=== PATIENT | male | born 1960 | race Caucasian/White ===

== ENCOUNTER 2021-02-03 12:52 | Emergency (ER) | payer BC ==
[~2021-02-03] VITALS: Ht 182.9 cm; Wt 70.3 kg
[~2021-02-03 12:52] MED LIST: ALBU90OI INH; Advil200 M1; IBUP400 PO; MONDOXYNE NL100 MG PO; PRED20 PO; Pepto-Bism525 MG/15; Percocet 5-3251 EACH PO; SYMBICORT 160-4.6 GM; VITAMIN D35000 UNI1; ZINC10 MG
== END 2021-02-03 13:24 | disposition home or self-care (01) ==
LOC: ER 12:52
DX: J93.9 Pneumothorax, unspecified (principal); Z88.8 Allergy status to other drugs, medicaments and biological substances; Z79.899 Other long term (current) drug therapy; J44.9 Chronic obstructive pulmonary disease, unspecified; F17.200 Nicotine dependence, unspecified, uncomplicated
CPT/HCPCS: 71046; 99281-25

== ENCOUNTER 2021-02-04 11:39 | Emergency (ER) | payer BC ==
[~2021-02-04] VITALS: Ht 182.9 cm; Wt 70.3 kg
== END 2021-02-04 17:44 | disposition home or self-care (01) ==
LOC: ER 11:39
DX: J93.9 Pneumothorax, unspecified (principal); Z88.8 Allergy status to other drugs, medicaments and biological substances; Z79.899 Other long term (current) drug therapy; Z79.52 Long term (current) use of systemic steroids; J44.9 Chronic obstructive pulmonary disease, unspecified; Z87.891 Personal history of nicotine dependence
CPT/HCPCS: 71045; 71046; 99283-25

== ENCOUNTER 2021-02-06 09:04 | Observation (INO) | payer BC ==
[~2021-02-06] VITALS: Ht 182.9 cm; Wt 74.8 kg
[2021-02-06 11:18] LABS: BASOPHILS ABSOLUTE AUTO 0.02 K/mm3 (0.00-0.23); BASOPHILS PERCENT AUTO 0 % (0-2); EOSINOPHILS PERCENT AUTO 7 % (0-6); Hematocrit 45.3 % (37.0-53.0); Hemoglobin 15.6 g/dL (13.5-17.5); IMMATURE GRAN ABSOLUTE AUTO 0.01 K/mm3 (0.00-0.10); IMMATURE GRAN PERCENT AUTO 0 % (0-1); LYMPHOCYTES ABSOLUTE AUTO 0.92 K/mm3 (0.84-5.20); LYMPHOCYTES PERCENT AUTO 15 % (21-46); MONOCYTES ABSOLUTE AUTO 0.44 K/mm3 (0.16-1.47); MONOCYTES PERCENT AUTO 7 % (4-13); Mean Corpuscular HGB 30.9 pg (26.0-34.0); Mean Corpuscular HGB Conc 34.4 g/dL (31.5-36.5); Mean Corpuscular Volume 90 fL (80-100); NEUTROPHILS ABSOLUTE AUTO 4.34 K/mm3 (1.96-9.15); NEUTROPHILS PERCENT AUTO 71 % (41-73); Platelet Count 196 K/mm3 (150-400); RDW Coefficient Variation 12.6 % (11.7-14.2); RDW Standard Deviation 41.4 fL (35.1-46.3); Red Blood Cell Count 5.05 M/mm3 (4.30-5.90); White Blood Cell Count 6.13 K/mm3 (4.00-11.30)
[2021-02-06 11:38] LABS: Anion Gap 3 mmol/L (6-16); Blood Urea Nitrogen 8 mg/dL (8-24); Bun/Creatinine Ratio 12.4 (12.0-20.0); CO2, Blood 30 mmol/L (21-32); Calcium, Blood 8.7 mg/dL (8.5-10.1); Chloride, Blood 106 mmol/L (98-108); Creatinine, Blood 0.65 mg/dL (0.60-1.20); Glomerular Filtration Rate >60 (60-); Glucose, Blood 135 mg/dL (70-99); Potassium, Blood 3.4 mmol/L (3.5-5.5); Sodium, Blood 139 mmol/L (136-145)
--- NOTE | 2021-02-06 17:02 | NUR ---
1610 DR LEGER HERE TO SEE PATIENT. CHEST TUBE AND SUCTION CHECKED BY DR LEGER AND IS FUNCTIONING IT SHOULD
--- NOTE | 2021-02-06 18:06 | NUR ---
REMAINS WITH CHEST TUBE TO WALL SUCTION AND BUBBLING PRESENT IN CHAMBERS B/C. NO INCREASE IN AREA OF CREPITUS. PT DENIES SOB. PT DENIES NEED FOR PAIN MEDS
[2021-02-07 04:53] LABS: Hematocrit 42.5 % (37.0-53.0); Hemoglobin 14.4 g/dL (13.5-17.5); Mean Corpuscular HGB 30.3 pg (26.0-34.0); Mean Corpuscular HGB Conc 33.9 g/dL (31.5-36.5); Mean Corpuscular Volume 89 fL (80-100); Mean Platelet Volume 9.7 fL (9.1-12.4); Platelet Count 176 K/mm3 (150-400); RDW Coefficient Variation 12.4 % (11.7-14.2); RDW Standard Deviation 41.1 fL (35.1-46.3); Red Blood Cell Count 4.76 M/mm3 (4.30-5.90); White Blood Cell Count 5.93 K/mm3 (4.00-11.30)
[2021-02-07 05:45] LABS: Anion Gap 6 mmol/L (6-16); Blood Urea Nitrogen 9 mg/dL (8-24); Bun/Creatinine Ratio 13.1 (12.0-20.0); CO2, Blood 28 mmol/L (21-32); Calcium, Blood 8.8 mg/dL (8.5-10.1); Chloride, Blood 106 mmol/L (98-108); Creatinine, Blood 0.69 mg/dL (0.60-1.20); Glomerular Filtration Rate >60 (60-); Glucose, Blood 96 mg/dL (70-99); Potassium, Blood 3.9 mmol/L (3.5-5.5); Sodium, Blood 140 mmol/L (136-145)
--- NOTE | 2021-02-07 17:14 | NUR ---
PT TO TRANSFER TO [facility] ROOM 4404 BY PRIVATE CAR. CONTACT NURSE KELSIE [phone]. PT SPOKE WITH DR LEGER REGARDING TRANSFER BY PRIVATE CAR WITH CHEST TUBE IN PLACE. DR LEGER DISCUSSED WITH PATIENT RISKS OF TRANSFER BY PRIVATE CAR AND PATIENT REQUESTS TO PROCEED WITH TRANSFER BY PRIVATE CAR WITH HIS SPOUSE SHYLA TO TRANSPORT HIM. CHEST TUBE IN PLACE TO RIGHT CHEST WITH AIR LEAK SHOWING IN CHAMBER. PT DENIES PAIN OR SOB. AREA OF CREPITUS HAS NOT CHANGED THROUGHOUT SHIFT
[2021-02-07 17:40] LABS: Influenza A, PCR NEGATIVE (NEGATIVE); Influenza B, PCR NEGATIVE (NEGATIVE); Resp Syncytial Virus, PCR NEGATIVE (NEGATIVE); SARS-Cov-2 (COVID-19) PCR, MMC NEGATIVE (NEGATIVE)
--- NOTE | 2021-02-07 18:19 | NUR ---
dr kaiser here and clamped chest tube, pt denies any change is resp status post clamping. nurse to nurse report phoned to Willian at [facility].copy of medical records given to patient. pt discharged with spouse, margarita, to transport to [facility]
== END 2021-02-07 18:48 | disposition home or self-care (01) ==
LOC: ER 09:04 → ERHOLD 09:05 → SURS 14:29
PROVIDERS: Internal Medicine Critical Care Medicine; Student in an Organized Health Care Education/Training Program; ADMIT Internal Medicine
DX: J98.2 Interstitial emphysema (principal); J93.12 Secondary spontaneous pneumothorax; Z87.891 Personal history of nicotine dependence; E87.6 Hypokalemia; K21.9 Gastro-esophageal reflux disease without esophagitis; Z20.822 Contact with and (suspected) exposure to COVID-19
CPT/HCPCS: 0241U; 32551; 36415; 71045; 71046; 71250; 80048; 85025; 85027; 93005; 93010; 94760; 96374; 96375; 99285-25; A9270; J1885; J3010

== ENCOUNTER 2023-03-21 08:17 | Day surgery (SDC) | payer OTHER ==
[2023-03-21] VITALS (14 sets, daily range): BP systolic 108–152; BP diastolic 73–140
[~2023-03-21] VITALS: Ht 177.8 cm; Wt 73.7 kg
[~2023-03-21 08:17] MED LIST changes: +Lactated Ringer's 1,000 ML IV SCH
[2023-03-21] MEDS ORDERED: propofoL 40 ML IV ONE (08:47)
--- NOTE | 2023-03-21 08:50 | NUR ---
03/21/23 0850 Salina Maki HISTORY, CHART, MEDICATIONS AND ALLERGIES REVIEWED BEFORE START OF PROCEDURE. PATIENT CONFIRMS NPO STATUS AND AGREES WITH SCHEDULED PROCEDURE. 3-LEAD EKG REVIEWED WITH PHYSICIAN PRIOR TO START OF PROCEDURE. MONITOR INTACT WITH CONTINUOUS PULSE OXIMETRY,CAPNOGRAPHY, 3-LEAD EKG, INTERMITTENT BP. SUPPLEMENTAL O2 TO BE TITRATED THROUGHOUT PROCEDURE TO MAINTAIN O2 SATURATION ABOVE 90%. PATIENT DETERMINED TO BE ASA APPROPRIATE FOR PROPOFOL SEDATION PRIOR TO START OF PROCEDURE BY DR. REZA
--- NOTE | 2023-03-21 09:40 | NUR ---
Discharge instructions reviewed with patient. Patient verbalizes understanding. Copy given to patient to take home. Patient reports completing Chlorhexadine shower X2 prior to admission to hospital.
== END 2023-03-21 09:41 | disposition home or self-care (01) ==
LOC: ORSCMMR 08:17 → ORD 09:00 → ORSCMMR 09:00
PROVIDERS: Internal Medicine Gastroenterology
PROC: 0DBL8ZX Excision of Transverse Colon, Via Natural or Artificial Opening Endoscopic, Diagnostic (ICD-10-PCS; principal; 2023-03-21 09:00)
PROC: 0DBN8ZX Excision of Sigmoid Colon, Via Natural or Artificial Opening Endoscopic, Diagnostic (ICD-10-PCS; principal; 2023-03-21 09:00)
DX: K62.5 Hemorrhage of anus and rectum (principal); Z86.010 Personal history of colon polyps; Z80.0 Family history of malignant neoplasm of digestive organs; K63.5 Polyp of colon; J44.9 Chronic obstructive pulmonary disease, unspecified; Z87.891 Personal history of nicotine dependence; Z79.899 Other long term (current) drug therapy
CPT/HCPCS: 88305; J2704; J7120

== ENCOUNTER 2024-06-18 07:29 | Day surgery (SDC) | payer MEDICARE, OTHER ==
[2024-06-18] VITALS (10 sets, daily range): BP systolic 131–164; BP diastolic 80–144
[~2024-06-18] VITALS: Ht 180.3 cm; Wt 76.2 kg
[~2024-06-18 07:29] MED LIST changes: +AMOX-CLAV 875-1 EAC2 PO; +IBUP200 PO; +IPRAT-ALBUT 0.5-3 ML INH; -Lactated Ringer's 1,000 ML IV SCH; +NAPR500 PO; +ONDA4ODT MM; +PEPTO-BISMOL T262 M2 PO; +PRED5 PO; -SYMBICORT 160-4.6 GM; +SYMBICORT 160-4.6 GM INH; +TUDORZA PRESS400 MC1 INH
[2024-06-18] MEDS ORDERED: CeFAZolin Sodium 2,000 MG in NS 100 ML IV SCH (07:30)
[2024-06-18] MEDS ORDERED: Lactated Ringer's 1,000 ML IV SCH (07:30)
[2024-06-18] MEDS ORDERED: propofoL 20 ML IV ONE (08:00)
[2024-06-18] MEDS ORDERED: Dexamethasone Sod Phos 10 MG/ML 1ML VIAL ONE ×2 (08:01→09:30)
[2024-06-18] MEDS ORDERED: Midazolam HCl 1MG / ML 2ML Vial ONE (08:01)
[2024-06-18] MEDS ORDERED: FentaNYL Citrate 50 MCG/ML 2 ML Injection ONE ×2 (08:01→10:31)
[2024-06-18] MEDS ORDERED: Ondansetron HCl 2 MG / ML 2ML Vial ONE (08:01)
--- NOTE | 2024-06-18 08:14 | NUR ---
Ambulatory in Day Surgery Patient confirms NPO status and agrees with scheduled surgery. Pre-Op teaching done. Pt verbalizes understanding. History, Chart, Medications and Allergies reviewed before start of procedure. Patient reports completing Chlorhexadine shower X2 prior to admission to hospital.Patient States Post-Procedure ride home has been arranged.
[2024-06-18] MEDS ORDERED: Acetaminophen325 M1 PO (08:19)
[2024-06-18] MEDS ORDERED: CeFAZolin Sodium 2,000 MG VIAL ONE (08:28)
[2024-06-18] MEDS ORDERED: Bupivacaine 0.5% HCl 5 MG/ML 30MLVIAL ONE (08:50)
[2024-06-18] MEDS ORDERED: ePHEDrine Sulfate 50 MG/ML 1ML Injection ONE (09:31)
[2024-06-18] MEDS ORDERED: ePHEDrine Sulfate 50 MG/ML 1ML Injection IV PRN (10:00)
[2024-06-18] MEDS ORDERED: Atropine Sulfate 0.1 MG/ML 10ML SYR IV PRN (10:00)
[2024-06-18] MEDS ORDERED: FentaNYL Citrate 50 MCG/ML 2 ML Injection IV PRN ×2 (10:00→10:05)
[2024-06-18] MEDS ORDERED: HydrALAZINE HCl 20 MG / ML 1ML Vial IV PRN (10:05)
[2024-06-18] MEDS ORDERED: Ondansetron HCl 2 MG / ML 2ML Vial IV PRN (10:05)
[2024-06-18] MEDS ORDERED: Albuterol 2.5 MG/3 ML VIAL INH PRN (10:05)
[2024-06-18] MEDS ORDERED: HYDROmorphone HCl/Pf 1MG SYR IV PRN ×2 (10:05)
[2024-06-18] MEDS ORDERED: Ketorolac Tromethamine 30mg Vial ONE (10:24)
[2024-06-18] MEDS ORDERED: HYDROcodone 5-APAP 325 TAB PO PRN (11:20)
--- NOTE | 2024-06-18 12:08 | NUR ---
DISCHARGE NOTE PT A&OX4, BREATHING RA, VSS, TOLERATING PO INTAKE, PO PAIN MEDICATION GIVEN PER MD ORDERS, NO COMPLAINTS OF NAUSEA. FRIEND AT BEDSIDE. PT DISCHARGED WITH CANE, GLASSES, CELL PHONE AND ALL OTHER BELONGINGS. Patient up to Ambulate independently. Gait steady. Discharge instructions reviewed with patient. Patient verbalizes understanding. Copy given to patient to take home. Dressing to procedure site clean, dry, intact with no visible drainage, swelling, erythema or bruising noted. Discharged via wheelchair to private car for ride home.
--- NOTE | 2024-06-18 14:13 | NUR ---
06/18/24 9363 Radha Orozco NOTED: RASH AND RAISED BUMPS TO PT RIGHT GROIN UPON ENTRY TO OR RIGHT GROIN AND LOWER ABDOMEN SHAVED BY OR STAFF, NOT ENOUGH AREA SHAVED IN PREOP
== END 2024-06-18 12:10 | disposition home or self-care (01) ==
LOC: ORSCMMR 07:29 → ORD 09:00 → ORSCMMR 09:00
PROVIDERS: Surgery
PROC: 0YU50JZ Supplement Right Inguinal Region with Synthetic Substitute, Open Approach (ICD-10-PCS; principal; 2024-06-18 09:00)
DX: K40.90 Unilateral inguinal hernia, without obstruction or gangrene, not specified as recurrent (principal); J44.9 Chronic obstructive pulmonary disease, unspecified; Z87.891 Personal history of nicotine dependence; Z79.899 Other long term (current) drug therapy; Z85.038 Personal history of other malignant neoplasm of large intestine
CPT/HCPCS: A9270; C1781; J0690; J1100; J1885; J2250; J2405; J2704; J3010; J7120